=== PATIENT | male | born 1980 | race Caucasian/White ===

== ENCOUNTER → 2018-05-03 | Day surgery (SDC) | payer OTHER ==
[~2018-05-03] MED LIST: Lactated Ringers 1,000 ML IV SCH; Propofol 200 MG/20 ML SDV IV ONE
[2018-05-03 10:14] VITALS: BP 113/69
--- NOTE | 2018-05-03 13:36 | OR ---
DATE OF OPERATION: 05/03/2018 PREOPERATIVE DIAGNOSIS: RIGHT UPPER QUADRANT PAIN. POSTOPERATIVE DIAGNOSIS: GASTRITIS. SURGEON: Rodolfo Brothers MD PROCEDURE: EGD WITH BIOPSIES X4, ABHI. 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 COMPLICATIONS: None. SPECIMEN: 1. Antral biopsy x2. 2. ABHI. 3. Fundal biopsy x2. FINDINGS: 1. Full-length EGD. 2. Diffuse gastritis, hemorrhagic in areas at the fundus and antrum. RECOMMENDATIONS: The patient will be placed on proton pump therapy and Carafate. He will have close followup with Kelly [facility]. Instructed him to avoid all NSAIDs, nicotine, caffeine, and alcohol. INDICATIONS: The patient has been having some persistent epigastric and right upper quadrant pain with an apparent distant history of peptic ulcer disease. Kelly V[facility] sent him for EGD. DESCRIPTION OF PROCEDURE: The patient was prepped and draped, placed in the left lateral decubitus position. A lubricated Olympus gastroscope was inserted over a bit and advanced to cricopharyngeus area and easily intubated in the esophagus. The esophageal lining was benign in its entire course. The Z-line was crisp and sharp at 40 cm. No signs of distal esophagitis, stricturing, ulceration, or Carolina's changes. The scope was advanced in the stomach, through the pylorus, and into the second portion of the duodenum. This and the duodenal bulb were benign. The scope was brought back into the stomach. The patient had dried blood in many areas throughout the stomach. It looked like he had diffuse gastritis from the fundus down through the antrum, and worse in the fundal areas where he had a few little hemorrhagic areas. We did 2 biopsies of the antrum and fundus along with a CLOtest. There were no signs of any polyps, masses, or worrisome lesions. Retroflexion showed no upper cardia lesions. Air was then suctioned, scope removed without complication. MELA/LORY /[id number]
== END ==
LOC: CC.SDS 08:07
PROVIDERS: ATTEND Family Medicine
DX: K29.70 Gastritis, unspecified, without bleeding (principal); K31.89 Other diseases of stomach and duodenum; K21.9 Gastro-esophageal reflux disease without esophagitis; E04.1 Nontoxic single thyroid nodule
CPT/HCPCS: 87081; J2704; J7120

== ENCOUNTER 2023-01-08 00:23 | Emergency (ER) | payer OTHER ==
[2023-01-08] MEDS: Aspirin 81 MG Tab.Chew PO ONE (00:35)
[2023-01-08 00:57] LABS: BASOPHILS ABSOLUTE AUTO 0.01 10^3/uL (0.00-0.50); BASOPHILS PERCENT AUTO 0.1 % (0-1); EOSINOPHILS ABSOLUTE AUTO 0.06 10^3/uL (0.00-1.50); EOSINOPHILS PERCENT AUTO 0.9 % (0-6); HEMATOCRIT 41.5 % (42.0-52.0); HEMOGLOBIN 14.7 g/dL (14.0-18.0); IMMATURE GRAN ABSOLUTE AUTO 0.01 10^3/uL (0.00-0.49); IMMATURE GRAN PERCENT AUTO 0.1 % (0.0-4.9); LYMPHOCYTES ABSOLUTE AUTO 0.47 10^3/uL (0.60-5.00); MEAN CORPUSCULAR HEMOGLOBIN 31.2 pg (27.0-32.0); MEAN CORPUSCULAR HGB CONC 35.4 g/dL (32.0-36.0); MEAN CORPUSCULAR VOLUME 88.1 fL (83.0-97.0); MONOCYTES ABSOLUTE AUTO 0.48 10^3/uL (0.00-1.50); MONOCYTES PERCENT AUTO 7.2 % (0-10); NEUTROPHILS ABSOLUTE AUTO 5.64 x10^3/uL (1.80-8.00); NEUTROPHILS PERCENT AUTO 84.7 % (41-71); PLATELET COUNT,PLT 238 10^3/uL (150-400); RED BLOOD CELL COUNT 4.71 x10^6/uL (4.50-6.00); WHITE BLOOD CELL COUNT,WBC 6.7 10^3/uL (4.0-11.0)
[2023-01-08] MEDS: Ketorolac 30 MG/ML SDV IVPUSH ONE (01:04)
[2023-01-08 01:08] VITALS: PULSE 90
[2023-01-08 01:08] LABS: INR 1.03 (0.92-1.18); PROTHROMBIN TIME 10.6 SEC (9.3-11.3); PTT,PARTIAL THROMBOPLSTIN TIME 24.5 SEC (20.0-30.0)
[2023-01-08 01:16] LABS: ALBUMIN 4.2 g/dL (3.4-5.0); BILIRUBIN TOTAL 0.7 mg/dL (0.0-1.0); CALCIUM 9.3 mg/dL (8.4-10.1); EST CRCL DRUG DOSING (CG) 106.7 mL/min; MAGNESIUM 2.1 mg/dL (1.8-2.4); PROTEIN TOTAL,TP 7.7 g/dL (6.4-8.2)
[2023-01-08 01:45] VITALS: BP 126/84
== END 2023-01-08 01:50 | disposition home or self-care (01) ==
LOC: CC.ED 00:23
DX: R07.89 Other chest pain (principal)
CPT/HCPCS: 36415; 71046; 80053; 83690; 83735; 84484; 85025; 85610; 85730; 93005; 93010; 96374; 99284; 99285-25; A9270-GY; J1885